=== PATIENT | male | born 1985 | race Caucasian/White ===

== ENCOUNTER 2017-03-14 08:49 | Emergency (ER) | payer OTHER, BC ==
[2017-03-14] MEDS ORDERED: SODIUM CHLORIDE 0.9% 1,000 ML IV STA (08:52)
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
[2017-03-14 09:23] LABS: CH 33.6; CHCM 36.5; HCT 45.7 % (39.0-53.0); HDW 2.52; HGB 16.6 gm/dL (13.0-17.5); MCH 33.4 pg (25.0-35.0); MCHC 36.2 g/dL (31.0-37.0); MCV 92.3 fL (80.0-100.0); Mean Platelet Volume 7.9; RBC 4.95 m/uL (4.30-5.90); RDW 12.8 % (11.5-15.5); WBC 14.7 k/uL (3.8-10.6); WBC (Perox) 14.06
[2017-03-14 09:27] LABS: INR 1.1 (<1.2); Prothrombin Time 10.7 sec (9.0-12.0)
[2017-03-14 09:33] LABS: ALT 55 U/L (21-72); AST 24 U/L (17-59); Acetaminophen <10.0 ug/mL; Alcohol <10 mg/dL; Alkaline Phosphatase 96 U/L (38-126); Anion Gap 15 mmol/L; Blood Urea Nitrogen 10 mg/dL (9-20); Calcium 9.9 mg/dL (8.4-10.2); Carbon Dioxide 19 mmol/L (22-30); Chloride 102 mmol/L (98-107); Glucose 169 mg/dL (74-99); Non-African American GFR(MDRD) >60 (>60 ml/min/1.73 sqM); Potassium 4.1 mmol/L (3.5-5.1); Salicylate <1.0 mg/dL; Sodium 136 mmol/L (137-145); Total Bilirubin 1.3 mg/dL (0.2-1.3); Total Protein 7.4 g/dL (6.3-8.2)
[2017-03-14 09:57] LABS: Add Differential Manual Differential
[2017-03-14 09:59] LABS: Manual Review Performed; Nucleated Red Blood Cells 0 /100 WBC (0-0); RBC Morphology Normal; Total Cells Counted 100
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
[2017-03-14] MEDS ORDERED: SODIUM CHLORIDE 0.9% 1,000 ML IV ONE (10:45)
[2017-03-14 11:36] VITALS: BP 141/80; PULSE 98; RESP 16; TEMP 99.5
== END 2017-03-14 11:47 | disposition home or self-care (01) ==
LOC: EC 08:49
DX: E86.0 Dehydration (principal); G47.29 Other circadian rhythm sleep disorder; R53.83 Other fatigue; R00.0 Tachycardia, unspecified; F41.9 Anxiety disorder, unspecified; F17.200 Nicotine dependence, unspecified, uncomplicated; V47.5XXA Car driver injured in collision with fixed or stationary object in traffic accident, initial encounter; Y92.410 Unspecified street and highway as the place of occurrence of the external cause
CPT/HCPCS: 36415; 70450; 80053; 80306; 80320; 83520; 83605; 85025; 85610; 93005; 96360; 96361; 99284

== ENCOUNTER 2018-03-28 11:33 | Emergency (ER) | payer BC, OTHER ==
[2018-03-28 11:39] VITALS: BP 141/76; PULSE 103; RESP 20; TEMP 99
[2018-03-28] MEDS ORDERED: ACET/COD 300 MG/30 MG STARTER PACK 6 TAB BTL PO STA (11:45)
--- NOTE | 2018-03-28 11:47 | ED ---
ENT HPI - General Chief complaint: Dental/Oral Stated complaint: dental pain Time Seen by Provider: 03/28/18 11:39 Source: patient, RN notes reviewed Mode of arrival: ambulatory Limitations: no limitations - History of Present Illness Initial comments: 32-year-old male presented to emergency department to complaint of left lower dental pain. Patient has been bothersome or last 3 days. He did start taking some old penicillin 2 days ago. Patient states that has slightly improved the pain is unbearable today. He has contacted a dentist at this point. Patient denies any fever, chills or difficulty swallowing. He does admit to some mild facial swelling. - Related Data Home Medications Medication Instructions Recorded Confirmed ALPRAZolam 1 mg PO TID PRN 03/14/17 03/14/17 HYDROcodone/APAP 7.5-325MG [[place] 1 tab PO TID PRN 03/14/17 03/14/17 7.5-325] Previous Rx's Medication Instructions Recorded Ibuprofen [Motrin] 800 mg PO Q8HR #30 tab 03/28/18 Penicillin V Potassium [Pen Vee K] 500 mg PO QID #40 tablet 03/28/18 Allergies Allergy/AdvReac Type Severity Reaction Status Date / Time No Known Allergies Allergy Verified 03/28/18 11:36 Review of Systems ROS Statement: Those systems with pertinent positive or pertinent negative responses have been documented in the HPI. ROS Other: All systems not noted in ROS Statement are negative. Past Medical History Past Medical History: Asthma Additional Past Medical History / Comment(s): anxiety History of Any Multi-Drug Resistant Organisms: None Reported Past Surgical History: No Surgical Hx Reported Past Psychological History: No Psychological Hx Reported Smoking Status: Current every day smoker Past Alcohol Use History: Occasional Past Drug Use History: None Reported General Exam Limitations: no limitations General appearance: alert, in no apparent distress Head exam: Present: atraumatic, normocephalic, normal inspection ENT exam: Present: mucous membranes moist, TM's normal bilaterally, normal external ear exam. Absent: normal oropharynx (Edentulous, multiple dental fractures and dental caries noted, no drainable abscess mild swelling on the left lower gumline) Neck exam: Present: normal inspection, full ROM. Absent: tenderness, meningismus, lymphadenopathy Respiratory exam: Present: normal lung sounds bilaterally. Absent: respiratory distress, wheezes, rales, rhonchi, stridor Cardiovascular Exam: Present: regular rate, normal rhythm, normal heart sounds. Absent: systolic murmur, diastolic murmur, rubs, gallop, clicks Course Vital Signs 03/28/18 11:36 Temperature 99 F Pulse Rate 103 H Respiratory 20 Rate Blood Pressure 141/76 O2 Sat by Pulse 99 Oximetry Medical Decision Making - Medical Decision Making 32-year-old male presented for dental pain. Patient does have some swelling noted no drainable abscess. Patient will be started on penicillin and ibuprofen. Patient has follow-up return parameters were discussed. Disposition Clinical Impression: Dental caries, Fracture of tooth, Dental abscess Disposition: HOME SELF-CARE Condition: Stable Instructions: Dental Abscess (ED) Additional Instructions: Please return to the Emergency Department if symptoms worsen or any other concerns. Prescriptions: Ibuprofen [Motrin] 800 mg PO Q8HR #30 tab Penicillin V Potassium [Pen Vee K] 500 mg PO QID #40 tablet Is patient prescribed a controlled substance at d/c from ED?: No Referrals: Chandler Bowman DDS [STAFF PHYSICIAN] - 1-2 days Time of Disposition: 11:47
== END 2018-03-28 12:04 | disposition home or self-care (01) ==
LOC: EC 11:33
DX: S02.5XXA Fracture of tooth (traumatic), initial encounter for closed fracture (principal); K04.7 Periapical abscess without sinus; K02.9 Dental caries, unspecified; F41.9 Anxiety disorder, unspecified; F17.200 Nicotine dependence, unspecified, uncomplicated; X58.XXXA Exposure to other specified factors, initial encounter
CPT/HCPCS: 99282